=== PATIENT | male | born 1930 | race Caucasian/White ===

== ENCOUNTER 2017-10-18 12:06 | Emergency (ER) | payer MEDICARE ==
[2017-10-18] MEDS: SODIUM CHLORIDE 0.9% 500 ML 500 ML IV ONE ×2 (12:30→12:45)
[2017-10-18] MEDS ORDERED: ALBUTEROL/IPRATROPIUM 1 VIAL SOL INH ONE (12:33)
[2017-10-18] MEDS ORDERED: ALBUTEROL/IPRATROPIUM 1 VIAL SOL ONE (12:38)
[2017-10-18] MEDS ORDERED: ACETAMINOPHEN 325 MG PO ONE (12:43)
[2017-10-18] MEDS ORDERED: ACETAMINOPHEN 325 MG ONE (12:51)
[2017-10-18 13:03] LABS: CALCIUM 8.5 mg/dl (8.5-10.1); POTASSIUM 4.6 mMol/L (3.5-5.1)
[2017-10-18 13:11] LABS: HEMATOCRIT 48 % (39-53); MEAN CORPUSCULAR HGB CONC 34.5 gm/dl (32.0-36.0); MEAN CORPUSCULAR VOLUME 88 fL (80-100)
[2017-10-18] MEDS ORDERED: SODIUM CHLORIDE 0.9% 1000ML 1,000 ML IV SCH (13:30)
[2017-10-18 14:28] LABS: APPEARANCE,URINE Clear; BILIRUBIN,URINE 2+ (NEGATIVE); COLOR,URINE Amber; GLUCOSE, URINE (UA) NEGATIVE (NEGATIVE); KETONES,URINE 1+ (NEGATIVE); LEUKOCYTE ESTERASE ,URINE NEGATIVE (NEGATIVE); NITRATE,URINE NEGATIVE (NEGATIVE); OCCULT BLOOD,URINE 2+ (NEG-TRACE); PH,URINE 5.5
[2017-10-18] MEDS ORDERED: SODIUM CHLORIDE 0.9% 1000ML 1,000 ML IV NR (14:30)
[2017-10-18] MEDS ORDERED: PANTOPRAZOLE SODIUM 40 MG/10 ML PDS IV ONE (14:44)
[2017-10-18] MEDS ORDERED: LEVOFLOXACIN 25 MG/ML 750 MG in SODIUM CHLORIDE 0.9% 250 ML 150 ML IV ONE (14:46)
[2017-10-18] MEDS ORDERED: METRONIDAZOLE 500 MG (PREMIX) 500 MG/100 ML SOL IV ONE ×2 (14:49→14:59)
[2017-10-18] MEDS ORDERED: PANTOPRAZOLE SODIUM 40 MG/10 ML PDS ONE (14:52)
[2017-10-18] MEDS ORDERED: LEVOFLOXACIN 25 MG/ML SOL IV ONE ×2 (14:56→15:00)
[2017-10-18 15:01] LABS: ALBUMIN 3.1 gm/dl (3.4-5.0); BASOPHILS % (MANUAL) 0 % (0-3); BILIRUBIN,DIRECT 0.4 mg/dl (0.0-0.2); EOSINOPHILS % (MANUAL) 0 % (0-9); LYMPHOCYTES % (MANUAL) 6 % (10-50); NORMAL RBCS PRESENT
[2017-10-18 15:34] LABS: RBC,URINE 0-1 (0-3AV/HPF); WBC,URINE 0-1 (0-5AV/HPF)
[2017-10-18 16:49] VITALS: RESP 20; TEMP 98.6
[2017-10-18 16:52] VITALS: PULSE 114
[2017-10-18 17:56] VITALS: BP 123/93; O2SAT 95
[2017-10-19 11:25] LABS: ICTOTEST,URINE NEGATIVE (NEGATIVE)
== END 2017-10-18 17:40 | disposition short-term general hospital (02) | DRG 871 ==
LOC: ED 12:06
DX: A41.9 Sepsis, unspecified organism (principal); J18.9 Pneumonia, unspecified organism; K85.90 Acute pancreatitis without necrosis or infection, unspecified; K56.7 Ileus, unspecified; N28.9 Disorder of kidney and ureter, unspecified; W19.XXXA Unspecified fall, initial encounter; M79.662 Pain in left lower leg; M79.661 Pain in right lower leg; R91.1 Solitary pulmonary nodule
CPT/HCPCS: 70450; 71045; 71250; 72125; 72170; 73590; 74176; 80048; 80076; 80307; 81001; 85007; 85027; 87040; 87088; 87804; 99291; J1956; J7620; A9270-GY

== ENCOUNTER 2018-10-23 22:16 | Inpatient (IN) | payer MEDICARE ==
[2018-10-23] MEDS ORDERED: SODIUM CHLORIDE 0.9% 1000ML 1,000 ML IV ONE (22:34)
[2018-10-23] MEDS ORDERED: ALBUTEROL/IPRATROPIUM 1 VIAL SOL INH ONE (22:35)
[2018-10-23] MEDS ORDERED: ALBUTEROL/IPRATROPIUM 1 VIAL SOL ONE (22:40)
[2018-10-23] MEDS ORDERED: SOLUMEDROL 125 MG/2 ML 125 MG/2 ML PDS IV ONE (22:42)
[2018-10-23] MEDS ORDERED: SODIUM CHLORIDE 0.9% 50 ML 25 ML IV PRN (22:43)
[2018-10-23] MEDS ORDERED: CEFTRIAXONE 1 GM PDS ONE (22:45)
[2018-10-23] MEDS ORDERED: SOLUMEDROL 125 MG/2 ML 125 MG/2 ML PDS ONE (22:45)
[2018-10-23 23:04] LABS: HEMATOCRIT 35 % (39-53); HEMOGLOBIN 11.3 gm/dl (13.5-17.7); MEAN CORPUSCULAR HGB CONC 31.9 gm/dl (32.0-36.0); MEAN CORPUSCULAR VOLUME 91 fL (80-100)
[2018-10-23] MEDS: CEFTRIAXONE 1 GM PDS 2 GM in SODIUM CHLORIDE 0.9% 100 ML 100 ML IV SCH (23:05)
[2018-10-23 23:20] LABS: LACTIC ACID 1.3 mMol/L (0.0-2.0)
[2018-10-23 23:22] LABS: ALBUMIN 1.8 gm/dl (3.4-5.0); BILIRUBIN,TOTAL 0.4 mg/dl (0.2-1.0); CALCIUM 9.1 mg/dl (8.5-10.1); CREATININE 2.04 mg/dl (0.80-1.30); POTASSIUM 4.2 mMol/L (3.5-5.1); TOTAL PROTEIN 7.7 gm/dl (6.4-8.2); TROP I 0.032 ng/ml (0.000-0.056)
[2018-10-23 23:40] LABS: BAND NEUTROPHILS % (MANUAL) 3 %; BASOPHILS % (MANUAL) 0 % (0-3); EOSINOPHILS % (MANUAL) 0 % (0-9); LYMPHOCYTES % (MANUAL) 3 % (10-50); MONOCYTES % (MANUAL) 5 % (0-12); NEUTROPHILS % (MANUAL) 89 % (37-80); PLATELET MORPHOLOGY COMMENT ADEQUATE
[2018-10-23 23:42] LABS: ABG PH 7.4 (7.35-7.45)
[2018-10-24] MEDS ORDERED: CEFTRIAXONE 1 GM PDS 2 GM in SODIUM CHLORIDE 0.9% 100 ML 100 ML IV ONE (01:54)
[2018-10-24] MEDS ORDERED: ALBUTEROL NEB SOL 2.5MG/3ML 1 VIAL SOL NEB PRN ×2 (02:02→02:09)
[2018-10-24] MEDS: AZITHROMYCIN 500 MG PDS IV SCH ×2 (02:39→10:09)
[2018-10-24] MEDS: SODIUM CHLORIDE 0.9% FLUSH 10 ML SOL IV SCH ×2 (02:40→10:32)
[2018-10-24] MEDS: ALBUTEROL/IPRATROPIUM 1 VIAL SOL INH SCH ×3 (02:42→14:19)
[2018-10-24 07:53] LABS: CALCIUM 8.9 mg/dl (8.5-10.1); CARBON DIOXIDE 25.1 mEq/L (21-32); CREATININE 1.74 mg/dl (0.80-1.30); POTASSIUM 4.1 mMol/L (3.5-5.1)
[2018-10-24] MEDS ORDERED: DEXTROSE/SALINE 0.9% 1,000 ML with POTASSIUM CHLORIDE 2 MEQ/ML 20 MEQ IV SCH (08:45)
[2018-10-24] MEDS ORDERED: CHOLECALCIFEROL 1,000 IU TAB PO SCH (09:00)
[2018-10-24] MEDS ORDERED: BUDESONIDE/FORMOTEROL 160/4.5 AER INH SCH (09:00)
[2018-10-24] MEDS ORDERED: SOLUMEDROL 125 MG/2 ML 125 MG/2 ML PDS IV SCH (09:00)
[2018-10-24] MEDS ORDERED: ACETAMINOPHEN 500 MG 500 MG TAB PO SCH (09:00)
[2018-10-24 09:07] LABS: APPEARANCE,URINE Cloudy; BILIRUBIN,URINE NEGATIVE (NEGATIVE); COLOR,URINE Dark yellow; GLUCOSE, URINE (UA) NEGATIVE (NEGATIVE); KETONES,URINE NEGATIVE (NEGATIVE); LEUKOCYTE ESTERASE ,URINE NEGATIVE (NEGATIVE); NITRATE,URINE NEGATIVE (NEGATIVE); OCCULT BLOOD,URINE 1+ (NEG-TRACE); UROBILINOGEN,URINE 0.2 (0.2-1.0 EU)
[2018-10-24 09:22] LABS: WBC,URINE 0-2 (0-5AV/HPF)
[2018-10-24 09:23] LABS: BACTERIA NEGATIVE (< 1+); CRYSTALS 2+ AMORPH URATES (0-3 AVE/HPF)
[2018-10-24] MEDS ORDERED: ENOXAPARIN 40 MG SOL SC SCH (10:00)
[2018-10-24] MEDS ORDERED: CEFTRIAXONE 1 GM PDS ONE (11:22)
[2018-10-24] MEDS ORDERED: SODIUM CHLORIDE 0.9% 100 ML 100 ML IV ONE (11:22)
[2018-10-24] MEDS: CEFTRIAXONE 1 GM PDS 2 GM in SODIUM CHLORIDE 0.9% 100 ML 100 ML IV SCH (11:30)
[2018-10-24] MEDS ORDERED: POTASSIUM CHLORIDE 2 MEQ/ML SOL IV ONE (11:44)
[2018-10-24] MEDS ORDERED: ADENOSINE 3 MG/ML SOL IV ONE ×2 (14:44→14:45)
[2018-10-24] MEDS ORDERED: ADENOSINE 3 MG/ML SOL IV PRN (14:45)
[2018-10-24] MEDS ORDERED: DILTIAZEM 5 MG/ML SOL IV ONE ×4 (14:56→15:43)
[2018-10-24 15:04] VITALS: TEMP 96.8
[2018-10-24] MEDS ORDERED: DILTIAZEM 5 MG/ML 125 MG in SODIUM CHLORIDE 0.9% 100 ML 100 ML IV SCH (15:30)
[2018-10-24 16:06] VITALS: BP 89/62; PULSE 140; O2SAT 92
[2018-10-24] MEDS: SODIUM CHLORIDE 0.9% 1000ML 500 ML IV SCH ×2 (16:37→16:52)
[2018-10-24 16:59] VITALS: RESP 22
== END 2018-10-24 16:34 | disposition short-term general hospital (02) | DRG 193 ==
LOC: ED 22:16 → ACUTE CARE 10-24 01:26
PROVIDERS: ADMIT Internal Medicine; ATTEND Internal Medicine
DX: J18.9 Pneumonia, unspecified organism (principal); A41.9 Sepsis, unspecified organism; R00.0 Tachycardia, unspecified; R06.02 Shortness of breath; R05 Cough; J44.1 Chronic obstructive pulmonary disease with (acute) exacerbation; N28.9 Disorder of kidney and ureter, unspecified; I47.9 Paroxysmal tachycardia, unspecified
CPT/HCPCS: 36415; 36600; 71045; 80048; 80053; 81001; 82803; 83880; 84484; 85007; 85027; 87040; 93005; 93012; 94762; 96365; 96366; 96374; 99070; 99223; 99238; 99285; J0153; J0456; J0696; J1650; J2930; J3480; J7613; A9270-GY; J3490

== ENCOUNTER 2018-11-11 10:18 | Emergency (ER) | payer MEDICARE ==
[2018-11-11] MEDS ORDERED: ALBUTEROL/IPRATROPIUM 1 VIAL SOL INH PRN (10:50)
[2018-11-11] MEDS ORDERED: SODIUM CHLORIDE 0.9% 500 ML 500 ML IV ONE (10:53)
[2018-11-11 11:29] LABS: LACTIC ACID 1.2 mMol/L (0.0-2.0)
[2018-11-11 11:33] LABS: BASOPHILS % (AUTO) 1 % (0-3); EOSINOPHILS % (AUTO) 0 % (0-9); HEMATOCRIT 22 % (39-53); LYMPHOCYTES % (AUTO) 13.5 % (10-50); MEAN CORPUSCULAR HEMOGLOBIN 29.8 pg (27.0-32.0); MEAN CORPUSCULAR HGB CONC 31.9 gm/dl (32.0-36.0); MEAN CORPUSCULAR VOLUME 93 fL (80-100); MONOCYTES % (AUTO) 8.3 % (0-12); NEUTROPHILS % (AUTO) 76.7 % (37-80)
[2018-11-11] MEDS ORDERED: SODIUM CHLORIDE 0.9% 50 ML 25 ML IV PRN (11:37)
[2018-11-11] MEDS ORDERED: CEFTRIAXONE 1 GM PDS 2 GM in SODIUM CHLORIDE 0.9% 100 ML 100 ML IV ONE (11:37)
[2018-11-11] MEDS ORDERED: ALBUTEROL/IPRATROPIUM 1 VIAL SOL ONE (11:42)
[2018-11-11] MEDS ORDERED: CEFTRIAXONE 1 GM PDS ONE (11:42)
[2018-11-11] MEDS ORDERED: SOLUMEDROL 125 MG/2 ML 125 MG/2 ML PDS IV ONE (11:43)
[2018-11-11 11:44] LABS: ALBUMIN 2.1 gm/dl (3.4-5.0); BILIRUBIN,TOTAL 0.3 mg/dl (0.2-1.0); CALCIUM 8.3 mg/dl (8.5-10.1); CARBON DIOXIDE 33.5 mEq/L (21-32); CREATININE 1.56 mg/dl (0.80-1.30); TOTAL PROTEIN 6.7 gm/dl (6.4-8.2); TROP I 0.286 ng/ml (0.000-0.056)
[2018-11-11] MEDS ORDERED: SODIUM CHLORIDE 0.9% 1000ML 1,000 ML IV SCH (11:45)
[2018-11-11] MEDS: SODIUM CHLORIDE 0.9% FLUSH 10 ML SOL IV PRN ×3 (11:48→14:30)
[2018-11-11] MEDS ORDERED: ASPIRIN 81 MG CHEWABLE CTB PO ONE (12:06)
[2018-11-11] MEDS ORDERED: SOLUMEDROL 125 MG/2 ML 125 MG/2 ML PDS ONE (12:07)
[2018-11-11] MEDS ORDERED: ASPIRIN 81 MG CHEWABLE CTB ONE (12:07)
[2018-11-11 12:22] LABS: ABG PH 7.45 (7.35-7.45)
[2018-11-11] MEDS ORDERED: VANCOMYCIN HCL 500 MG PDS 1,000 MG in SODIUM CHLORIDE 0.9% 250 ML 250 ML IV ONE (12:26)
[2018-11-11 12:33] VITALS: RESP 20; TEMP 97.3
[2018-11-11] MEDS ORDERED: HEPARIN SODIUM 5000 U/ML SOL IV ONE (13:42)
[2018-11-11] MEDS ORDERED: HEPARIN SODIUM 5000 U/ML 25,000 U in DEXTROSE 250 ML 250 ML IV PRN (13:43)
[2018-11-11] MEDS ORDERED: VANCOMYCIN HYDROCHLORIDE 500 MG PDS IV ONE (13:54)
[2018-11-11] MEDS ORDERED: HEPARIN SODIUM 5000 U/ML SOL ONE ×2 (14:05→14:11)
[2018-11-11 14:30] LABS: APPEARANCE,URINE Clear; BILIRUBIN,URINE 1+ (NEGATIVE); COLOR,URINE Yellow; GLUCOSE, URINE (UA) NEGATIVE (NEGATIVE); KETONES,URINE NEGATIVE (NEGATIVE); LEUKOCYTE ESTERASE ,URINE NEGATIVE (NEGATIVE); NITRATE,URINE NEGATIVE (NEGATIVE); OCCULT BLOOD,URINE 2+ (NEG-TRACE); PH,URINE 7.5; UROBILINOGEN,URINE 0.2 (0.2-1.0 EU)
[2018-11-11 14:47] LABS: BACTERIA TRACE (< 1+); CRYSTALS NEGATIVE (0-3 AVE/HPF); EPITHELIAL CELLS 0-2 (SQUAMOUS); ICTOTEST,URINE NEGATIVE (NEGATIVE)
[2018-11-11] MEDS ORDERED: CLINDAMYCIN HYDROCHLORIDE 150 MG CAP PO SCH (15:30)
[2018-11-11 20:13] VITALS: BP 125/66; PULSE 90; O2SAT 99
== END 2018-11-11 14:44 | disposition short-term general hospital (02) | DRG 280 ==
LOC: ED 10:18
DX: I21.4 Non-ST elevation (NSTEMI) myocardial infarction (principal); I26.99 Other pulmonary embolism without acute cor pulmonale; J18.9 Pneumonia, unspecified organism; N28.9 Disorder of kidney and ureter, unspecified; R06.2 Wheezing; R06.02 Shortness of breath
CPT/HCPCS: 36415; 36600; 71045; 71275; 80053; 81001; 82803; 83880; 84484; 85025; 85378; 87040; 87088; 93005; 96365; 96366; 96374; 96375; 99291; 99292; J0696; J1644; J2930; J3370; Q9967

== ENCOUNTER 2018-12-09 05:58 | Inpatient (IN) | payer MEDICARE ==
[2018-12-09 06:42] LABS: HEMATOCRIT 37 % (39-53); HEMOGLOBIN 11.6 gm/dl (13.5-17.7); MEAN CORPUSCULAR HEMOGLOBIN 29.2 pg (27.0-32.0); MEAN CORPUSCULAR HGB CONC 31.7 gm/dl (32.0-36.0); MEAN CORPUSCULAR VOLUME 92 fL (80-100)
[2018-12-09 06:51] LABS: ALBUMIN 2.4 gm/dl (3.4-5.0); BILIRUBIN,TOTAL 0.3 mg/dl (0.2-1.0); CALCIUM 8.4 mg/dl (8.5-10.1); CARBON DIOXIDE 31.7 mEq/L (21-32); CREATININE 1.24 mg/dl (0.80-1.30); POTASSIUM 4.4 mMol/L (3.5-5.1); TOTAL PROTEIN 7.2 gm/dl (6.4-8.2)
[2018-12-09 07:09] LABS: BAND NEUTROPHILS % (MANUAL) 6 %; BASOPHILS % (MANUAL) 0 % (0-3); EOSINOPHILS % (MANUAL) 0 % (0-9); LYMPHOCYTES % (MANUAL) 6 % (10-50); MONOCYTES % (MANUAL) 4 % (0-12); NEUTROPHILS % (MANUAL) 84 % (37-80); NORMAL RBCS PRESENT
[2018-12-09] MEDS ORDERED: ALBUTEROL/IPRATROPIUM 1 VIAL SOL INH PRN (07:15)
[2018-12-09] MEDS ORDERED: LEVOFLOXACIN 25 MG/ML 750 MG in SODIUM CHLORIDE 0.9% 250 ML 150 ML IV ONE (07:16)
[2018-12-09 07:17] LABS: INR 2.38 (0.86-1.12)
[2018-12-09] MEDS ORDERED: SOLUMEDROL 125 MG/2 ML 125 MG/2 ML PDS IV ONE (07:21)
[2018-12-09] MEDS ORDERED: CEFTRIAXONE 1 GM PDS 2 GM in SODIUM CHLORIDE 0.9% 100 ML 100 ML IV ONE (07:22)
[2018-12-09] MEDS ORDERED: PANTOPRAZOLE SODIUM 40 MG/10 ML PDS IV ONE (07:30)
[2018-12-09] MEDS ORDERED: SODIUM CHLORIDE IV SCH (07:45)
[2018-12-09] MEDS ORDERED: PANTOPRAZOLE SODIUM IV SCH (07:45)
[2018-12-09 07:46] LABS: TROP I < 0.017 ng/ml (0.000-0.056)
[2018-12-09 07:57] LABS: LACTIC ACID 1.4 mMol/L (0.0-2.0)
[2018-12-09] MEDS ORDERED: PANTOPRAZOLE SODIUM 40 MG/10 ML PDS ONE (08:23)
[2018-12-09] MEDS ORDERED: LEVOFLOXACIN 500 MG TAB PO ONE (09:28)
[2018-12-09] MEDS ORDERED: LEVOFLOXACIN 500 MG TAB ONE (10:07)
[2018-12-09] MEDS ORDERED: SOLUMEDROL 125 MG/2 ML 125 MG/2 ML PDS ONE (10:07)
[2018-12-09] MEDS ORDERED: ALBUTEROL NEB SOL 2.5MG/3ML 1 VIAL SOL NEB PRN (14:47)
[2018-12-09] MEDS ORDERED: ALBUTEROL/IPRATROPIUM 1 VIAL SOL INH SCH (16:00)
[2018-12-09] MEDS: ALBUTEROL/IPRATROPIUM 1 VIAL SOL INH SCH ×2 (16:37→23:56)
[2018-12-09] MEDS: SODIUM CHLORIDE 3 % INH SOL INH SCH (23:56)
[2018-12-09] MEDS: ACETAMINOPHEN 500 MG 500 MG TAB PO SCH (23:57)
[2018-12-09] MEDS: BUDESONIDE 0.5 MG/2 ML AMPUL.NEB INH SCH (23:57)
[2018-12-09] MEDS: METOPROLOL TARTRATE 25 MG TAB PO SCH (23:57)
[2018-12-10 07:33] LABS: BASOPHILS % (AUTO) 0 % (0-3); EOSINOPHILS % (AUTO) 0 % (0-9); HEMATOCRIT 32 % (39-53); HEMOGLOBIN 10.2 gm/dl (13.5-17.7); LYMPHOCYTES % (AUTO) 8.1 % (10-50); MEAN CORPUSCULAR HEMOGLOBIN 29.5 pg (27.0-32.0); MEAN CORPUSCULAR HGB CONC 31.9 gm/dl (32.0-36.0); MEAN CORPUSCULAR VOLUME 93 fL (80-100); MONOCYTES % (AUTO) 4.3 % (0-12); NEUTROPHILS % (AUTO) 87.3 % (37-80)
[2018-12-10] MEDS ORDERED: PANTOPRAZOLE SODIUM 40 MG/10 ML PDS IV SCH (09:00)
[2018-12-10] MEDS ORDERED: PANTOPRAZOLE SODIUM 40 MG ECT PO SCH (09:00)
[2018-12-10] MEDS: METOPROLOL TARTRATE 25 MG TAB PO SCH ×2 (09:14→21:29)
[2018-12-10] MEDS: ACETAMINOPHEN 500 MG 500 MG TAB PO SCH ×2 (09:14→21:29)
[2018-12-10] MEDS: ALBUTEROL/IPRATROPIUM 1 VIAL SOL INH SCH ×4 (09:14→21:28)
[2018-12-10] MEDS: SODIUM CHLORIDE 0.9% FLUSH 10 ML SOL IV SCH ×2 (09:20→18:27)
[2018-12-10] MEDS: SODIUM CHLORIDE 3 % INH SOL INH SCH ×2 (09:27→21:28)
[2018-12-10] MEDS: BUDESONIDE 0.5 MG/2 ML AMPUL.NEB INH SCH ×2 (09:36→21:28)
[2018-12-10 15:38] VITALS: RESP 18
[2018-12-10] MEDS: DIPHENHYDRAMINE 25 MG CAP PO PRN (21:33)
[2018-12-11 07:17] LABS: CALCIUM 7.9 mg/dl (8.5-10.1); CREATININE 1.04 mg/dl (0.80-1.30); POTASSIUM 3.7 mMol/L (3.5-5.1)
[2018-12-11 07:20] LABS: BASOPHILS % (AUTO) 1 % (0-3); EOSINOPHILS % (AUTO) 0 % (0-9); HEMATOCRIT 31 % (39-53); HEMOGLOBIN 10.1 gm/dl (13.5-17.7); LYMPHOCYTES % (AUTO) 18.7 % (10-50); MEAN CORPUSCULAR HGB CONC 32.3 gm/dl (32.0-36.0); MEAN CORPUSCULAR VOLUME 93 fL (80-100); MONOCYTES % (AUTO) 7.2 % (0-12)
[2018-12-11 07:30] LABS: CARBON DIOXIDE 33.2 mEq/L (21-32)
[2018-12-11 09:04] VITALS: PULSE 75; TEMP 97.6; O2SAT 94
[2018-12-11] MEDS: ALBUTEROL/IPRATROPIUM 1 VIAL SOL INH SCH (09:04)
[2018-12-11] MEDS: ACETAMINOPHEN 500 MG 500 MG TAB PO SCH (09:06)
[2018-12-11] MEDS: DIPHENHYDRAMINE 25 MG CAP PO PRN (09:07)
[2018-12-11] MEDS: SODIUM CHLORIDE 3 % INH SOL INH SCH (09:20)
[2018-12-11 09:24] VITALS: BP 102/65
[2018-12-11] MEDS: METOPROLOL TARTRATE 25 MG TAB PO SCH (09:26)
[2018-12-11] MEDS: BUDESONIDE 0.5 MG/2 ML AMPUL.NEB INH SCH (09:29)
[2018-12-12] MEDS ORDERED: PANTOPRAZOLE SODIUM 40 MG ECT PO SCH (09:00)
== END 2018-12-11 10:40 | DRG 193 ==
LOC: ED 05:58 → ACUTE CARE 10:15 → UNDOADMIN 10:15
PROVIDERS: ADMIT Internal Medicine; ATTEND Internal Medicine
DX: J44.9 Chronic obstructive pulmonary disease, unspecified (principal); K92.0 Hematemesis; J18.9 Pneumonia, unspecified organism; I26.99 Other pulmonary embolism without acute cor pulmonale; R00.0 Tachycardia, unspecified; K92.2 Gastrointestinal hemorrhage, unspecified; R06.02 Shortness of breath; R11.10 Vomiting, unspecified; Z79.01 Long term (current) use of anticoagulants; J43.1 Panlobular emphysema
CPT/HCPCS: 36415; 71045; 80048; 80053; 83880; 84484; 85007; 85018; 85025; 85027; 85610; 87040; 93005; 94640; 96374; 96375; 99284; 99285; J2930; A9270-GY